=== PATIENT | male | born 1990 | race Caucasian/White ===

== ENCOUNTER 2020-06-06 18:16 | Emergency (ER) | payer OTHER, MEDICAID ==
[~2020-06-06] VITALS: Ht 177.8 cm; Wt 77.1 kg
[2020-06-06 18:24] VITALS: BP_SYST 118
[2020-06-06] MEDS ORDERED: LIDOCAINE 1%, 20 ML MDV 20 ML ONE (20:08)
[2020-06-06] MEDS ORDERED: LIDOCAINE/EPI 1% 1:100000 20 ML VIAL INJ ONE (20:15)
[2020-06-06] MEDS ORDERED: ACETAMINOPHEN/CODEINE 300 MG-30 MG TABLET PO ONE (20:15)
[2020-06-06 20:54] VITALS: BP_SYST 134
== END 2020-06-06 20:54 | disposition home or self-care (01) ==
LOC: SED 18:16
DX: S71.112A Laceration without foreign body, left thigh, initial encounter (principal); F17.200 Nicotine dependence, unspecified, uncomplicated; F12.90 Cannabis use, unspecified, uncomplicated; Z88.0 Allergy status to penicillin; Z88.1 Allergy status to other antibiotic agents; W26.8XXA Contact with other sharp object(s), not elsewhere classified, initial encounter; Y93.89 Activity, other specified; Y92.89 Other specified places as the place of occurrence of the external cause; Y99.8 Other external cause status
CPT/HCPCS: 12002; 99283; J2001